=== PATIENT | female | born 1950 | race Caucasian/White ===

== ENCOUNTER 2017-05-15 18:12 | Observation (INO) ==
[2017-05-15] MEDS ORDERED: IPRATROPIUM/ALBUTEROL 3 ML AMPUL.NEB NEB ONE ×4 (18:31→23:22)
[2017-05-15] MEDS ORDERED: predniSONE 20 MG TABLET PO ONE (18:52)
--- NOTE | 2017-05-15 18:56 | XRay Report ---
CLINICAL INFORMATION: ] Hypoxia and cough COMPARISON: None. FINDINGS: Heart size, mediastinum and pulmonary vessels are unremarkable. Lung volumes are slightly elevated and there is minimal bronchial wall thickening suggesting bronchitis or asthma. Minor airspace disease in the right lateral base likely atelectasis - the remaining lungs are clear. No effusions. Minimal old compression fractures seen throughout the upper mid thoracic spine IMPRESSION: Findings suggestive of mild chronic bronchitis thoracic. Minor right basilar atelectasis Interpreted and Authenticated by: Delbert Wilcox 05/15/17
[2017-05-15 19:55] LABS: Basophils # (Auto) 0.2 K/mcL (0.0-0.3); Basophils % (Auto) 1.1 % (0.0-2.0); Eosinophils # (Auto) 0.1 K/mcL (0.0-0.7); Eosinophils % (Auto) 0.9 % (0.0-7.0); Granulocytes % (Auto) 63.6 % (38.0-78.0); Lymphocytes # (Auto) 3.7 K/mcL (1.5-4.8); Lymphocytes % (Auto) 23.9 % (15.5-49.0); Mean Cell Volume 95.2 fL (80.0-100.0); Mean Corpuscular HGB Conc 32.4 g/dL (31.0-36.0); Mean Corpuscular Hemoglobin 30.9 pg (26.0-34.0); Monocytes # (Auto) 1.6 K/mcL (0.1-0.9); Monocytes % (Auto) 10.5 % (1.0-12.0); Platelet Count 327 K/mcL (140-440); RBC 4.78 M/mcL (4.00-5.20); Red Cell Distribution Width 13.4 % (11.5-14.5)
[2017-05-15 20:17] LABS: proBNP 390.4 pg/ml (0-125)
[2017-05-15 20:18] LABS: ALT/SGPT 11 U/l (0-40); Albumin/Globulin Ratio 1.1 (1.0-2.3); Alkaline Phosphatase 80 U/L (39-117); Blood Urea Nitrogen 11 mg/dl (8-23)
--- NOTE | 2017-05-15 20:27 | Emergency Department Note ---
General Adult HPI - General Chief complaint: Cold/Flu Symptoms Stated complaint: Cough Time Seen by Provider: 05/15/17 18:45 Source: patient Mode of arrival: ambulatory Limitations: no limitations - History of Present Illness HPI Narrative: 67-year-old female with a history of cough with wheezing over the past 2 weeks. Complaining of some sinus drainage as well. She is afebrile. She is currently wheezing. Sats on room air were 88 on room air when she first arrived in triage. Patient has a heavy history of tobacco usage one pack of cigarettes a day for greater than 45 years. States she has used inhalers in the past has not been formally diagnosed with COPD. Denies history of asthma and is afebrile. Denies sore throat but is having some nasal congestion. No abdominal pain no nausea no vomiting no urgency frequency or dysuria - Related Data Home Medications Medication Instructions Recorded Confirmed Unobtainable [Unobtainable] 05/15/17 05/15/17 Allergies Allergy/AdvReac Type Severity Reaction Status Date / Time No Known Drug Allergies Allergy Verified 05/15/17 18:15 Review of Systems Limitations: ROS unobtainable due to patients medical condition Constitutional: Denies: fever, chills Eyes: Denies: eye pain ENT ED: Denies: ear pain Cardiovascular: Denies: chest pain, palpitations Respiratory: Reports: as per HPI, cough, wheezes. Denies: dyspnea, hemoptysis, stridor Gastrointestinal: Denies: abdominal pain, nausea, vomiting Past Medical History - Past Medical History Medical history: Reports: hyperlipidemia, hypertension Surgical history ED: Reports: appendectomy, other (tubal) - Social History smoking status: Current every day smoker Alcohol use: Reports: Rarely Drug use: Reports: none Physical Exam - General Limitations: no limitations General appearance: alert - Head Head exam: atraumatic, normocephalic - Eye Eye exam: Present: normal appearance, PERRL - ENT ENT exam: normal exam, normal oropharynx - Neck Neck exam: Present: normal inspection, full ROM. Absent: trachea midline - Chest Chest inspection: Present: normal inspection, symmetric chest wall rise. Absent : tenderness - Respiratory Respiratory exam: Present: normal lung sounds bilaterally, wheezes. Absent: respiratory distress, stridor, accessory muscle use, prolonged expiratory phase - Cardiovascular Cardiovascular exam: Present: regular rate, normal rhythm. Absent: bradycardia , tachycardia - Abdominal Exam Abdominal exam: Present: soft, distention. Absent: tenderness, guarding - Back Exam Back exam: Present: normal inspection, full ROM, tenderness - Neurological Exam Neurological exam: Present: alert, oriented X3, CN II-XII intact - Psychiatric Psychiatric exam: Present: normal affect, normal mood Course Vital Signs Temperature 98.5 F 05/15/17 18:12 Pulse Rate 83 05/15/17 18:12 Respiratory Rate 20 05/15/17 18:12 Blood Pressure 171/72 05/15/17 18:12 Pulse Oximetry (%) 88 L 05/15/17 18:12 Temperature 98.5 F 05/15/17 18:24 Pulse Rate 86 05/15/17 22:02 Respiratory Rate 16 05/15/17 22:02 Blood Pressure 163/69 05/15/17 22:01 Pulse Oximetry (%) 91 05/15/17 22:51 Medical Decision Making - Lab Data Result diagrams: 05/15/17 19:10 05/15/17 19:10 Lab Results 05/15/17 05/15/17 05/15/17 Range/Units 19:10 19:10 19:10 WBC 15.7 H (4.5-11.0) K/mcL RBC 4.78 (4.00-5.20) M/mcL Hgb 14.8 (12.0-15.0) g/dL Hct 45.5 (36.0-48.0) % MCV 95.2 (80.0-100.0) fL MCH 30.9 (26.0-34.0) pg MCHC 32.4 (31.0-36.0) g/dL RDW 13.4 (11.5-14.5) % Plt Count 327 (140-440) K/mcL MPV 8.7 (7.4-10.4) fL Gran % 63.6 (38.0-78.0) % Lymph % (Auto) 23.9 (15.5-49.0) % [place] % (Auto) 10.5 (1.0-12.0) % Eos % (Auto) 0.9 (0.0-7.0) % Baso % (Auto) 1.1 (0.0-2.0) % Gran # 10.0 H (1.8-8.0) K/mcL Lymph # (Auto) 3.7 (1.5-4.8) K/mcL [place] # (Auto) 1.6 H (0.1-0.9) K/mcL Eos # (Auto) 0.1 (0.0-0.7) K/mcL Baso # (Auto) 0.2 (0.0-0.3) K/mcL Sodium 140 (133-145) mmol/L Potassium 3.5 (3.3-5.1) mmol/L Chloride 97 (96-108) mmol/L Carbon Dioxide 31 H (22-30) mmol/L Anion Gap 12.0 (8-16) BUN 11 (8-23) mg/dl Creatinine 0.6 (0.6-1.1) mg/dl GFR Calculation 95 Glucose 98 (70-105) mg/dL Calcium 9.6 (8.6-10.4) mg/dl Total Bilirubin 0.7 (0.0-1.0) mg/dL AST 16 (0-37) U/l ALT 11 (0-40) U/l Alkaline Phosphatase 80 (39-117) U/L NT-Pro-B Natriuret Pep 390.4 H (0-125) pg/ml Total Protein 7.8 (5.9-8.4) gm/dL Albumin 4.0 (3.2-5.2) gm/dL Globulin 3.8 H (2.2-3.7) gm/dL Albumin/Globulin Ratio 1.1 (1.0-2.3) Disposition Pt seen by CHAIR AND [employer]CH [employer]KER/PA only: No Clinical Impression: Hypoxia Disposition: Xfer As Outpt/Obs ([facility]) Condition: Undetermined
[2017-05-15] MEDS ORDERED: ACETAMINOPHEN 325 MG TABLET PO PRN (22:51)
[2017-05-15] MEDS ORDERED: ONDANSETRON 4 MG/2 ML VIAL IV PRN (22:51)
[2017-05-15] MEDS ORDERED: ALBUTEROL SULFATE 2.5 MG/3 ML NEBULIZER NEB PRN (22:51)
--- NOTE | 2017-05-15 23:14 | Internal Med History&Physical ---
Medical - H&P: HPI Patient information: Note initiated : 05/15/17 at 11:09 pm Service Date, if different from initiated Date: [] Patient: Elida Parekh a 67 y/o F admitted on 05/15/17 for Cough. Chief Complaint: cough and dyspnea History of present illness: Ms. Parekh is a 67 year old F who presents to the emergency room with 1 week with pulmonary symptoms. Last Wednesday, the patient developed sore throat, developed a cough and chest congestion. She had burning pain in her chest with coughing, produce greenish/dark yellowish sputum. Her sore throat abated after a few days, however she continued to feel short of breath and have ongoing cough and sputum production. Today the sputum production may have improved somewhat, however she was very tired with any exertion, on further query sounds as if she was having significant dyspnea with exertion. She's had some wheezing. 2-3 days ago she felt feverish and had some chills. Overall she is complaining of continued cough, dyspnea and decreased energy. Location: Chest. Severity: Moderate. Duration: One week, progressive, now perhaps abating. Aggravating factors: Exertion. She presents emergency room where her oxygen saturations were 86% on room air present. She received several nebulizer therapies as well as prednisone. Respiratory exam improved, however the patient remained hypoxic. Oxygen saturations dropped to 82% with ambulation, these were confirmed by arterial blood gas. She is maintaining saturations in the low 90% on 2 L nasal cannula. Patient has no history of lung disease, though she has smoked one pack per day for close to 55 years. She did have a bout of bronchitis a few years ago, did not require any inhalers or steroids. At baseline she has no dyspnea with exertion, no daily cough or sputum production. During this episode, she's had some mild nausea but no vomiting, no abdominal pain. She denies any chest tightness squeezing or pressure. The burning in her chest has improved no urinary symptoms, no focal neurologic symptoms. No history of diabetes, thyroid disease, renal disease, ulcer disease, no hematemesis, no blood in her stools. The patient is unsure of her medications, she takes 2 blood pressure medications and a cholesterol medication. Review of systems: Except as noted in the history of present illness, the remainder of an 11 point review of systems is negative Medical - H&P: PMH Medical history: Hypertension Hyperlipidemia History of murmur History of bronchitis Pertinent family history: The patient's mother of lung cancer. She was a smoker. She also had breast cancer. Smoking status: Current every day smoker (1 pack per day for close to 55 years) Time spent discussing smoking cessation with patient: 3 to 10 minutes Alcohol use: none Medical - H&P: Meds Home Medications Medication Instructions Recorded Confirmed Type Unobtainable [Unobtainable] 05/15/17 05/15/17 History Allergies Allergy/AdvReac Type Severity Reaction Status Date / Time No Known Drug Allergies Allergy Verified 05/15/17 18:15 Medical - H&P: Exam - Constitutional Vitals: Temp Pulse Resp BP Pulse Ox 98.5 F 86 16 163/69 91 05/15/17 18:24 05/15/17 22:02 05/15/17 22:02 05/15/17 22:01 05/15/17 22:51 - Head Head exam: Present: atraumatic, normal inspection - Eye Eye exam: Present: PERRL. Absent: conjunctival injection, scleral icterus - ENT ENT exam: Present: mucous membranes moist, normal oropharynx - Neck Neck exam: Present: full ROM. Absent: lymphadenopathy, meningismus, thyromegaly - Respiratory Respiratory exam: Present: wheezes (scattered). Absent: accessory muscle use, respiratory distress - Cardiovascular Cardiovascular exam: Present: normal rate and rhythm - Expanded Cardiovascular Exam Location: Present: RUSB (radiates across clavicle to carotids) Intensity: 3/6 Peripheral pulses: 2+: carotid (L), carotid (R), radial (L), radial (R) - GI/Abdominal GI/Abdominal exam: Present: normal bowel sounds, soft. Absent: organomegaly, rebound, tenderness - Extremities Exam Extremities exam: Present: full ROM. Absent: calf tenderness, joint swelling, pedal edema - Neurological Exam Neurological exam: Present: alert, CN II-XII intact, oriented X3. Absent: motor sensory deficit - Psychiatric Psychiatric exam: Present: normal affect, normal mood - Skin Skin exam: Present: dry, warm. Absent: cyanosis Medical - H&P: Reslt - Labs CBC & Chem 7: 05/15/17 19:10 05/15/17 19:10 Labs: Short CBC 05/15/17 Range/Units 19:10 WBC 15.7 H (4.5-11.0) K/mcL Hgb 14.8 (12.0-15.0) g/dL Hct 45.5 (36.0-48.0) % Plt Count 327 (140-440) K/mcL BMP 05/15/17 19:10 Sodium 140 Potassium 3.5 Chloride 97 Carbon Dioxide 31 H BUN 11 Creatinine 0.6 Glucose 98 Calcium 9.6 Liver Function 05/15/17 Range/Units 19:10 Total Bilirubin 0.7 (0.0-1.0) mg/dL AST 16 (0-37) U/l ALT 11 (0-40) U/l Alkaline Phosphatase 80 (39-117) U/L Albumin 4.0 (3.2-5.2) gm/dL - Imaging and Cardiology Chest x-ray Status: image reviewed by me Additional comments: IMPRESSION: Findings suggestive of mild chronic bronchitis thoracic. Minor right basilar atelectasis Medical - H&P: A/P (1) Acute respiratory failure with hypoxia Current visit: Yes Status: Acute (2) Bronchitis Current visit: Yes Status: Acute (3) Hypertension Current visit: Yes Status: Chronic (4) Hyperlipidemia Current visit: Yes Status: Chronic - Narrative A/P Narrative: 67-year-old female with a 50+ pack year smoking history presents with 1 week of worsening dyspnea, productive cough, fatigue, with some fevers and chills previously. The dense of bronchitis with wheezing on exam, suspect underlying COPD. Also hypoxic. Acute hypoxic respiratory failure. Likely secondary to bronchitis, suspect underlying intrinsic lung disease such as chronic bronchitis or COPD is also contributing. Plan: Observation hospitalization, supplemental oxygen, continue with nebulizer treatments, inhaled steroids, this still hypoxic tomorrow, we'll pursue home oxygen. Bronchitis. No infiltrate on chest x-ray, though some purulent appearing sputum. Likely would benefit from a short course of antibiotics as well as bronchodilators pterygoids. Plan: Scheduled nebs, azithromycin for 5 days, inhaled steroids. Smoking cessation counseling, patient plans to stop smoking and had set a quit date of this coming Wednesday. Cardiac murmur. Grade 3/6, loudest the upper right sternal border, though does radiate to the carotids and can be heard in the back, suspicious for aortic stenosis. She states her former primary care physician have been following this , though he is now retired. Subsequently she has had an echocardiogram done, which he had arranged prior to his senior living. She is endeavoring to set up new PCP. Plan: Monitor for now Hypertension. Patient's unsure of her home meds. Plan: Continue to monitor, attempt to get education records Hyperlipidemia, again unsure what her home medication as Plan: We'll hold meds for now. CODE STATUS is full code
[2017-05-15] MEDS: BUDESONIDE 0.5 MG/2 ML AMPUL.NEB NEB SCH (23:22)
[2017-05-15] MEDS ORDERED: BUDESONIDE 0.5 MG/2 ML AMPUL.NEB NEB ONE (23:22)
[2017-05-15] MEDS: IPRATROPIUM/ALBUTEROL 3 ML AMPUL.NEB NEB SCH (23:22)
[2017-05-15] MEDS: AZITHROMYCIN 250 MG TABLET PO SCH (23:32)
[2017-05-15] MEDS: 0.9 % SODIUM CHLORIDE 10 ML SYRINGE IV SCH (23:33)
[2017-05-16] MEDS: NICOTINE 7 MG PATCH TOPICAL SCH ×2 (00:32→16:00)
[2017-05-16] MEDS ORDERED: IPRATROPIUM/ALBUTEROL 3 ML AMPUL.NEB NEB ONE (03:14)
[2017-05-16] MEDS: IPRATROPIUM/ALBUTEROL 3 ML AMPUL.NEB NEB SCH ×3 (03:14→11:58)
[2017-05-16] MEDS: 0.9 % SODIUM CHLORIDE 10 ML SYRINGE IV SCH ×2 (05:51→16:00)
[2017-05-16 06:09] LABS: Blood Urea Nitrogen 10 mg/dl (8-23)
[2017-05-16 06:20] LABS: Mean Cell Volume 92.4 fL (80.0-100.0); Mean Corpuscular HGB Conc 33.2 g/dL (31.0-36.0); Mean Corpuscular Hemoglobin 30.7 pg (26.0-34.0); Platelet Count 286 K/mcL (140-440); Red Cell Distribution Width 12.6 % (11.5-14.5)
[2017-05-16 06:52] LABS: Band Neutrophils % 8 % (0-10); Lymphocytes % 9 % (15-49); Monocytes % (Manual) 14 % (1-12); Platelet Estimate NORMAL (NORMAL); RBC Morphology NORMAL (NORMAL); Segmented Neutrophils % 69 % (38-78)
[2017-05-16] MEDS: BUDESONIDE 0.5 MG/2 ML AMPUL.NEB NEB SCH (08:28)
[2017-05-16] MEDS ORDERED: LISINOPRIL 20 MG TABLET PO SCH (09:00)
[2017-05-16] MEDS ORDERED: ENOXAPARIN 40 MG/0.4 ML SYRINGE SQ SCH (09:00)
[2017-05-16] MEDS: AZITHROMYCIN 250 MG TABLET PO SCH (09:37)
[2017-05-16] MEDS ORDERED: MAGNESIUM HYDROXIDE 30 ML ORAL.SUSP PO PRN (09:55)
[2017-05-16] MEDS ORDERED: BISACODYL 10 MG SUPP.RECT PR PRN (09:55)
[2017-05-16] MEDS ORDERED: METOPROLOL TARTRATE 50 MG TABLET PO SCH (11:19)
--- NOTE | 2017-05-16 13:41 | Discharge Summary ---
Medical - DS: Prov Patient information: Note initiated : 05/16/17 at 1:30 pm Service Date, if different from initiated Date: [] Patient: Elida Parekh 67 y/o F admitted on 05/15/17 for Cough. Chief Complaint: Productive cough, weakness, dyspnea Date of admission: 05/15/17 22:50 Discharge date: 05/16/17 Admitting clinician: Kita Arreaga Attending physician on admission: Kita Arreaga Consults: 05/15/17 21:15 Consult to Physician [CONS] Stat Comment: Consulting Provider: Kita Arreaga Reason For Exam: Physician to Consult Attending physician on discharge: Kita Arreaga Discharging clinician: Kita Arreaga Medical - DS: Meds - Discharge Medications Prescriptions: Azithromycin [Zithromax] 250 mg PO DAILY #3 tab Budesonide [Pulmicort Flexhaler] 180 mcg IH BID #1 aer.[email or web address] Ipratropium/Albuterol Sulfate [Combivent] 2 puff INH QID #1 inhaler Nicotine [Nicotine Patch] 7 mg TD DAILY #30 patch.dysq Active and Home Medications: Home Medications Altace 10 mg PO DAILY 05/16/17 [History Confirmed 05/16/17 Last Taken 05/15/17 09:00] Ativan 1 mg PO PRN PRN 05/16/17 [History Confirmed 05/16/17 Last Taken 05/14/17 21:00] Atorvastatin [Lipitor] 20 mg PO DAILY 05/16/17 [History Confirmed 05/16/17 Last Taken 05/15/17 21:00] Metoprolol Tartrate 10 mg PO BID 05/16/17 [History Confirmed 05/16/17 Last Taken 05/15/17 09:00] Arbon 10/325Mg 10 mg PO PRN PRN 05/16/17 [History Confirmed 05/16/17 Last Taken 05/14/17 21:00] Medical - DS: Hosp Hospital course: Mrs. Parekh is a 67 year old F who presented with one week of upper respiratory symptoms, including initially sore throat, cough, sputum production. She had progressive dyspnea and weakness. Due to progression of symptoms, she presented to the emergency department. She had significant wheezing and rhonchi of presentation. She was also hypoxic with room air saturation of 82%. In spite of pulmonary treatments in the ED, steroids, bronchodilators, the patient remained hypoxic. She was hospitalized in observation status for further intensive pulmonary treatments. Patient was newly diagnosed with COPD. This is based upon her pulmonary exam, chest radiograph with evidence of increased lung volumes as well as chronic bronchitic changes and ABG which showed a mild CO2 retention as well as hypoxia. She has a [id number] history of smoking. Patient remained hypoxic following day. She was evaluated for home O2, which was ordered. This is for diagnosis of COPD. Is expected that with resolution of the exacerbation, she will no longer require oxygen at home. We discussed smoking cessation both at admission and discharge. Prescription for nicotine patches was given at discharge. In addition the patient received a prescription for inhaled budesonide as well as Combivent for COPD. Patient has not yet found a new primary care provider. She will need a new PCP , to follow up on this new diagnosis, as well as to follow-up on her most recent echocardiogram for presumptive aortic stenosis (based on exam and her description of a long-standing murmur that's been followed). Asked echo was done after her current PCP had retired. Discharge diagnosis: COPD exacerbation with acute hypoxic respiratory failure Reason for admission: Hypoxia COPD exacerbation Pertinent studies/significant findings: Chest radiograph with chronic bronchitic changes and increased lung volumes. ABG with pH 7.42, PCO2 51, PO2 45 on room air Complications: None Time spent discussing smoking cessation with patient: more than 10 minutes - Time Spent with Patient Total time spent providing and/or coordinating discharge services: Greater than 30 minutes Medical - DS: Exam - Constitutional Vitals: Vital Signs Temp Pulse Pulse Resp BP BP Pulse Ox 05/16/17 11:58 85 18 05/16/17 11:04 97.8 F 20 152/76 93 05/16/17 08:37 88 18 95 05/16/17 08:30 89 16 05/16/17 08:00 95 05/16/17 06:55 97.1 F 20 146/74 92 05/16/17 04:20 93 05/16/17 04:15 86 L 05/16/17 03:18 97.4 F 89 16 137/64 94 05/16/17 02:27 93 05/16/17 01:57 95 05/16/17 00:34 91 05/15/17 23:31 87 16 05/15/17 23:25 94 05/15/17 23:24 94 05/15/17 22:51 91 05/15/17 22:50 98.1 F 89 24 H 129/66 91 05/15/17 22:02 86 16 92 05/15/17 22:01 87 24 H 163/69 91 05/15/17 21:46 86 30 H 148/71 90 05/15/17 21:31 90 25 H 158/63 89 L 05/15/17 21:17 90 18 158/63 92 05/15/17 21:02 92 H 17 161/64 90 05/15/17 21:00 90 22 154/62 90 05/15/17 20:58 91 H 16 154/62 91 05/15/17 20:56 89 27 H 92 05/15/17 20:52 82 L 05/15/17 20:12 87 L 05/15/17 20:04 98 H 16 05/15/17 19:56 88 97 05/15/17 19:24 93 H 94 05/15/17 19:23 96 H 96 05/15/17 19:18 86 181/69 94 05/15/17 19:15 94 05/15/17 19:10 86 L 05/15/17 18:55 92 H 18 05/15/17 18:34 18 05/15/17 18:24 98.5 F 83 20 171/72 88 L 05/15/17 18:12 98.5 F 83 20 171/72 88 L Intake and Output 05/15/17 05/16/17 05/16/17 21:59 05:59 13:59 Intake Total 500 / 500 920 / 920 Output Total 1250 / 1250 850 / 850 Balance -750 / -750 70 / 70 Intake: Oral 500 / 500 920 / 920 Output: Void Amount 1250 / 1250 850 / 850 Other: Meal Jello Breakfast Percent of Meal Consumed 100% 100% Feeding Ability Independent Independent # Voids 1 # Bowel Movements 1 Weight 140 lb 144 lb - Other Additional findings: General: Sitting in bed in no acute distress Chest: Diminished throughout, scattered expiratory wheezes Cardiovascular: Regular rate and rhythm with 3/6 systolic murmur, unchanged Abdomen: Soft, nontender Neuro: Alert, oriented 3, nonfocal Medical - DS: Data Labs on day of discharge: Labs from last 24 hours 05/16/17 05/16/17 05/15/17 04:30 04:30 19:10 WBC 12.8 H RBC 4.40 Hgb 13.5 Hct 40.6 MCV 92.4 MCH 30.7 MCHC 33.2 RDW 12.6 Plt Count 286 MPV 8.9 Gran % Lymph % (Auto) [place] % (Auto) Eos % (Auto) Baso % (Auto) Gran # Lymph # (Auto) [place] # (Auto) Eos # (Auto) Baso # (Auto) Total Counted 100 Seg Neutrophils % 69 Band Neutrophils % 8 Lymphocytes % 9 L Monocytes % (Manual) 14 H Platelet Estimate Normal RBC Morphology Normal Sodium 141 Potassium 3.5 Chloride 99 Carbon Dioxide 27 Anion Gap 15.0 BUN 10 Creatinine 0.5 L GFR Calculation 101 Glucose 215 H Calcium 9.0 Total Bilirubin AST ALT Alkaline Phosphatase NT-Pro-B Natriuret Pep 390.4 H Total Protein Albumin Globulin Albumin/Globulin Ratio 05/15/17 05/15/17 19:10 19:10 WBC 15.7 H RBC 4.78 Hgb 14.8 Hct 45.5 MCV 95.2 MCH 30.9 MCHC 32.4 RDW 13.4 Plt Count 327 MPV 8.7 Gran % 63.6 Lymph % (Auto) 23.9 [place] % (Auto) 10.5 Eos % (Auto) 0.9 Baso % (Auto) 1.1 Gran # 10.0 H Lymph # (Auto) 3.7 [place] # (Auto) 1.6 H Eos # (Auto) 0.1 Baso # (Auto) 0.2 Total Counted Seg Neutrophils % Band Neutrophils % Lymphocytes % Monocytes % (Manual) Platelet Estimate RBC Morphology Sodium 140 Potassium 3.5 Chloride 97 Carbon Dioxide 31 H Anion Gap 12.0 BUN 11 Creatinine 0.6 GFR Calculation 95 Glucose 98 Calcium 9.6 Total Bilirubin 0.7 AST 16 ALT 11 Alkaline Phosphatase 80 NT-Pro-B Natriuret Pep Total Protein 7.8 Albumin 4.0 Globulin 3.8 H Albumin/Globulin Ratio 1.1 - Imaging and Cardiology Chest x-ray Additional comments: IMPRESSION: Findings suggestive of mild chronic bronchitis thoracic. Minor right basilar atelectasis Medical - DS: A/P - Patient/Caregiver Discharge Instructions Activity: resume usual activities as tolerated Diet: Regular Diet Additional Instructions: Follow-up with new PCP when established. Other Amb Orders: Home Oxygen Order Location: Determined By Patient - Problem Maintenance (1) Acute respiratory failure with hypoxia Status: Acute (2) Bronchitis Status: Acute (3) Hypertension Status: Chronic Qualifiers: Hypertension type: essential hypertension Qualified Code(s): I10 - Essential (primary) hypertension (4) Hyperlipidemia Status: Chronic (5) COPD (chronic obstructive pulmonary disease) Status: Chronic Qualifiers: COPD type: unspecified COPD Qualified Code(s): J44.9 - Chronic obstructive pulmonary disease, unspecified (6) COPD exacerbation Status: Acute - Follow up Plan Disposition: Home, Self-Care Prognosis: Good Rehab Potential: Good Overall status at discharge: patient is not back to baseline Medical - DS: Qual - VTE Deep Vein Thrombosis/Pulmonary Embolism Present on Admission: No
[2017-05-16] MEDS ORDERED: DOCUSATE SODIUM 100 MG CAPSULE PO SCH (21:00)
[2017-05-17] MEDS ORDERED: FLU VACC QS2017-18 36MOS UP/PF 60 MCG/0.5 ML SYRINGE IM ONE (10:00)
== END 2017-05-16 15:55 | disposition home or self-care (01) ==
LOC: MEDSUR 18:12 → ED 18:12 → MEDSUR 23:00
PROVIDERS: ADMIT Internal Medicine; ATTEND Internal Medicine